=== PATIENT | male | born 1945 | race Caucasian/White ===

== ENCOUNTER 2017-11-25 10:47 | Emergency (ER) | payer OTHER ==
[~2017-11-25] VITALS: Ht 180.3 cm; Wt 81.9 kg
[2017-11-25 11:26] LABS: BASOPHILS % (AUTO) 0 % (0-1); EOSINOPHILS # (AUTO) 0.2 X10'3 (0-0.9); EOSINOPHILS % (AUTO) 2.5 % (0-6); HEMOGLOBIN 14.2 g/dl (14.0-17.9); LYMPHOCYTES # (AUTO) 1.4 X10'3 (1.1-4.8); LYMPHOCYTES % (AUTO) 14.6 % (21-51); MEAN CORPUSCULAR HEMOGLOBIN 33.4 PG (27.0-31.0); MEAN CORPUSCULAR HGB CONC 34.7 % (33.0-36.5); MEAN CORPUSCULAR VOLUME 96.5 FL (78-98); MEAN PLATELET VOLUME 7.6 FL (7.4-10.4); MONOCYTES % (AUTO) 9.9 % (2-12); PLATELET COUNT 179 X10'3 (140-440); RED BLOOD COUNT 4.25 X10'6 (4.70-6.10); RED CELL DISTRIBUTION WIDTH 14.9 % (11.5-14.5); WHITE BLOOD COUNT 9.6 X10'3 (4.5-11.0)
[2017-11-25 11:34] LABS: PARTIAL THROMBOPLASTIN TIME 30 SECONDS (22-32); PROTHROMBIN TIME 10.2 SECONDS (9.0-12.0)
[2017-11-25 11:45] LABS: CLARITY,URINE CLEAR (Clear); COLOR,URINE YELLOW (Yellow); GLUCOSE, URINE NEGATIVE (Neg); KETONES,URINE NEGATIVE (Neg); LEUKOCYTE ESTERASE ,URINE NEGATIVE (Neg); NITRITES, URINE NEGATIVE (Neg); OCCULT BLOOD,URINE NEGATIVE (Neg); PH,URINE 5.5 (4.8-8.0); PROTEIN,URINE NEGATIVE (Neg)
[2017-11-25 11:46] LABS: UA COLLECTION TYPE CLN CATCH MIDSTREAM
[2017-11-25 11:57] LABS: ALANINE AMINOTRANSFERASE 32 U/L (12-78); ALBUMIN 3.3 G/DL (3.4-5.0); ALBUMIN/GLOBULIN RATIO 0.9 (1.1-1.5); ALKALINE PHOSPHATASE 63 IU/L (46-116); ANION GAP 3 (8-16); ASPARTATE AMINO TRANSFERASE 13 U/L (10-37); BILIRUBIN,TOTAL 2.3 MG/DL (0.1-1.0); BLOOD UREA NITROGEN 16 MG/DL (7-18); CHLORIDE 105 MMOL/L (99-107); CREATINE KINASE 26 U/L (39-308); GLUCOSE 96 MG/DL (70-104); MAGNESIUM 1.9 MG/DL (1.5-2.4); POTASSIUM 4.2 MMOL/L (3.5-5.1); SODIUM 140 MMOL/L (135-145); TOTAL CARBON DIOXIDE 32.3 MMOL/L (24-32); TOTAL PROTEIN 6.9 G/DL (6.4-8.2); eGFR 74 ML/MIN
[2017-11-25] MEDS ORDERED: normal saline 1000ml 1,000 ML IV ONE (12:22)
[2017-11-25] MEDS ORDERED: normal saline 1000ML IV soln IVB ONE (12:25)
[2017-11-25 12:33] LABS: LIPASE 122 U/L (73-393)
[2017-11-25] MEDS ORDERED: iohexol 350MG/ML 100ml bottle IV ONE (13:09)
[2017-11-25] MEDS ORDERED: NO HOME MEDS (15:36)
[2017-11-25] MEDS ORDERED: pneumococcal 23-VAL P-sac vacc 25 mcg/0.5ml vial IMVAC ONE (15:50)
[2017-11-25] MEDS ORDERED: LEVO500T89 PO (16:13)
[2017-11-25 17:28] VITALS: BP 119/62
== END 2017-11-25 17:31 | disposition home or self-care (01) ==
LOC: ER 10:47
DX: R07.89 Other chest pain (principal)
CPT/HCPCS: 36415; 71045; 71275; 76700; 80053; 81003; 82550; 83690; 83735; 83880; 84484; 85025; 85610; 85730; 90732; 93005; 96360; 96361; 99285; J7030; Q9967